=== PATIENT | male | born 1955 | race Caucasian/White ===

== ENCOUNTER 2023-09-12 17:50 | Inpatient (IN) | payer OTHER ==
[2023-09-12] MEDS ORDERED: SODIUM CHLORIDE 1,000 ML IV STA (18:58)
[2023-09-12 20:58] LABS: BASO % 0.3 % (0-2.0); EOS % 0.1 % (0-4.5); HEMATOCRIT 33.3 % (35.4-49); HEMOGLOBIN 10.7 GM/dL (11.7-16.9); LYMPH % 15.6 % (8-40); MCHC 32.1 g/dl (32.0-35.9); MEAN CELL VOLUME 78.1 fl (80-96); MEAN PLT VOLUME 8.4 fl (7.5-11.1); MONO % 9.2 % (3.8-10.2); NEUT % 74.8 % (42.8-82.8); PLATELET COUNT 152 10^3/uL (134-434); RBC 4.26 M/mm3 (4.00-5.60); RDW 14.4 % (11.9-15.9); WHITE BLOOD COUNT 5.1 K/mm3 (4.0-10.0)
[2023-09-12 21:03] LABS: INR 1.19 (0.83-1.09); PROTHROMBIN TIME (PATIENT) 13.8 SEC (9.7-13.0)
[2023-09-12 21:06] LABS: ACTIVATED PTT 32.4 SECONDS (25.2-36.5)
[2023-09-12 21:16] LABS: CHLORIDE 98 mmol/L (98-107); POTASSIUM 3.8 mmol/L (3.5-5.1); SODIUM 133 mmol/L (136-145)
[2023-09-12] MEDS ORDERED: FOLIC ACID INJECTION - 1 MG, THIAMINE HCL 100 MG, MULTIVIT INJECTION ADULT 10 ML in SOD... IVPB ONE (21:17)
[2023-09-12 21:18] LABS: CALCIUM 9.3 mg/dL (8.5-10.1)
[2023-09-12 21:19] LABS: ALBUMIN 2.6 g/dl (3.4-5.0); ANION GAP 9 mmol/L (4-13); BLOOD UREA NITROGEN 11.1 mg/dL (7-18); CO2 27 mmol/L (21-32); GLUCOSE,RANDOM 358 mg/dL (74-106); LIPASE 235 U/L (73-393); MAGNESIUM 1.5 mg/dL (1.8-2.4)
[2023-09-12] MEDS ORDERED: PANTOPRAZOLE SODIUM 40 MG VIAL IVPUSH ONE (21:20)
[2023-09-12 21:22] LABS: CREATININE 0.6 mg/dL (0.55-1.3); SGOT/AST 8 U/L (15-37); SGPT/ALT < 6 U/L (13-61)
[2023-09-12 21:23] LABS: BILIRUBIN,TOTAL 0.5 mg/dL (0.2-1); TOT PROT 6.9 g/dl (6.4-8.2)
[2023-09-12 21:25] LABS: ALK PHOS 125 U/L (45-117)
[2023-09-12 21:26] LABS: VENOUS O2 SATURATION 77.7 % (70-80); VENOUS PCO2 43.6 mmHg (38-52); VENOUS PH 7.436 (7.310-7.410)
[2023-09-12] MEDS ORDERED: PANTOPRAZOLE SODIUM 40 MG VIAL ONE (22:05)
[2023-09-12] MEDS ORDERED: MAGNESIUM SULFATE IN WATER 2 GM/50 ML IVPB IVPB ONE ×2 (22:46→23:06)
[2023-09-13] MEDS ORDERED: SODIUM CHLORIDE 1,000 ML IV STA (00:40)
[2023-09-13] MEDS ORDERED: ACETAMINOPHEN 325 MG TABLET (FP) PO PRN (00:47)
[2023-09-13] MEDS ORDERED: ONDANSETRON 4 MG/2 ML VIAL IVPUSH PRN (00:48)
[2023-09-13] MEDS ORDERED: ACETAMINOPHEN 1000 MG/100 ML BAG IVPB PRN (00:49)
[2023-09-13 01:20] LABS: EPI CELLS 16 /uL (0-25.1); HYALINE CASTS 1 /uL (0-3.1); PH,URINE 5.5 (5.0-8.0); URINE APPEARANCE CLEAR; URINE BACTERIA 24 /uL (0-1359); URINE BILIRUBIN NEGATIVE (NEGATIVE); URINE COLOR YELLOW; URINE GLUCOSE (UA) 3+ (NEGATIVE); URINE KETONE 2+ (NEGATIVE); URINE LEUK ESTERASE NEGATIVE (NEGATIVE); URINE NITRITE NEGATIVE (NEGATIVE); URINE PROTEIN 1+ (NEGATIVE); URINE RBC 8 /uL (0-23.9); URINE WBC 10 /uL (0-25.8)
[2023-09-13] MEDS ORDERED: traMADol HCL 50 MG TABLET PO SCH (02:00)
[2023-09-13] MEDS: SODIUM CHLORIDE 1,000 ML IV SCH (02:23)
[2023-09-13] MEDS ORDERED: traMADol HCL 50 MG TABLET ONE (02:26)
[2023-09-13] MEDS ORDERED: MIRTAZAPINE 15 MG TABLET (FP) ONE (02:26)
[2023-09-13] MEDS: MIRTAZAPINE 15 MG TABLET (FP) PO SCH ×2 (02:30→22:14)
[2023-09-13] MEDS ORDERED: traMADol HCL 50 MG TABLET PO PRN (03:00)
[2023-09-13 05:10] VITALS: BMI 18.3
[2023-09-13] MEDS ORDERED: INSULIN (NOVOLOG) ASPART 100 UNITS/ML 10ML VIAL ONE (06:00)
[2023-09-13] MEDS: INSULIN ASPART SLIDING SCALE (NOVOLOG) 1 VIAL SQ SCH ×5 (06:04→22:22)
[2023-09-13] MEDS: INSULIN (LEVEMIR) 100 UNITS/ML UNITS SQ SCH (06:23)
[2023-09-13] MEDS ORDERED: ACETAMINOPHEN 1000 MG/100 ML BAG IVPB ONE (11:20)
[2023-09-13] MEDS: AMINO ACIDS 4.25%/D5W 1,000 ML IV SCH (11:35)
[2023-09-13] MEDS: ENOXAPARIN NA (PORCINE) 40 MG/0.4 ML DISP.SYRIN SQ SCH (11:35)
[2023-09-13] MEDS ORDERED: LORazepam 0.5 MG TABLET PO PRN (22:00)
[2023-09-13] MEDS ORDERED: INSULIN (LEVEMIR) 100 UNITS/ML UNITS SQ SCH (22:00)
[2023-09-14] MEDS: SODIUM CHLORIDE 1,000 ML IV SCH (04:12)
[2023-09-14] MEDS: INSULIN ASPART SLIDING SCALE (NOVOLOG) 1 VIAL SQ SCH ×4 (06:20→22:20)
[2023-09-14] MEDS: ENOXAPARIN NA (PORCINE) 40 MG/0.4 ML DISP.SYRIN SQ SCH (11:29)
[2023-09-14] MEDS: AMINO ACIDS 4.25%/D5W 1,000 ML IV SCH ×2 (11:30→18:45)
[2023-09-14] MEDS: INSULIN (LEVEMIR) 100 UNITS/ML UNITS SQ SCH (11:45)
[2023-09-14] MEDS: HALOPERIDOL LACTATE 5 MG/ML IM SCH (22:15)
[2023-09-15] MEDS: AMINO ACIDS 4.25%/D5W 1,000 ML IV SCH ×3 (03:25→19:37)
[2023-09-15] MEDS: INSULIN ASPART SLIDING SCALE (NOVOLOG) 1 VIAL SQ SCH ×4 (06:53→21:43)
[2023-09-15] MEDS: SODIUM CHLORIDE 1,000 ML IV SCH (06:53)
[2023-09-15] MEDS ORDERED: INSULIN (NOVOLOG) ASPART 100 UNITS/ML 10ML VIAL ONE ×3 (06:58→18:04)
[2023-09-15] MEDS: ENOXAPARIN NA (PORCINE) 40 MG/0.4 ML DISP.SYRIN SQ SCH (10:17)
[2023-09-15] MEDS: HALOPERIDOL LACTATE 5 MG/ML IM SCH (21:32)
[2023-09-16] MEDS: AMINO ACIDS 4.25%/D5W 1,000 ML IV SCH ×2 (05:42→17:44)
[2023-09-16] MEDS: INSULIN ASPART SLIDING SCALE (NOVOLOG) 1 VIAL SQ SCH ×4 (06:40→22:34)
[2023-09-16] MEDS ORDERED: MIRTAZAPINE 15 MG TABLET (FP) PO SCH (10:00)
[2023-09-16] MEDS: ENOXAPARIN NA (PORCINE) 40 MG/0.4 ML DISP.SYRIN SQ SCH (10:37)
[2023-09-16] MEDS ORDERED: PORTA CATH FLUSH 10 ML IVPUSH PRN (14:39)
[2023-09-16] MEDS ORDERED: INSULIN (NOVOLOG) ASPART 100 UNITS/ML 10ML VIAL ONE ×2 (17:38→21:45)
[2023-09-16] MEDS ORDERED: FENTANYL PATCH WASTE TD PRN (17:42)
[2023-09-16] MEDS: fentaNYL 12mcg/hr PATCH.TD72 TD SCH (18:21)
[2023-09-16] MEDS: LIDOCAINE 4% PATCH TP SCH (18:22)
[2023-09-16] MEDS: HALOPERIDOL LACTATE 5 MG/ML IM SCH (22:32)
[2023-09-16] MEDS: MIRTAZAPINE 15 MG TABLET (FP) PO SCH (22:35)
[2023-09-16] MEDS: LIDOCAINE PATCH REMOVAL MC SCH (22:36)
[2023-09-17] MEDS: AMINO ACIDS 4.25%/D5W 1,000 ML IV SCH ×2 (05:47→17:37)
[2023-09-17] MEDS: INSULIN ASPART SLIDING SCALE (NOVOLOG) 1 VIAL SQ SCH ×4 (07:38→21:46)
[2023-09-17] MEDS: LIDOCAINE 4% PATCH TP SCH (10:28)
[2023-09-17] MEDS: ENOXAPARIN NA (PORCINE) 40 MG/0.4 ML DISP.SYRIN SQ SCH (10:28)
[2023-09-17] MEDS ORDERED: INSULIN (NOVOLOG) ASPART 100 UNITS/ML 10ML VIAL ONE (21:39)
[2023-09-17] MEDS: HALOPERIDOL LACTATE 5 MG/ML IM SCH (21:47)
[2023-09-17] MEDS: MIRTAZAPINE 15 MG TABLET (FP) PO SCH (21:52)
[2023-09-17] MEDS: LIDOCAINE PATCH REMOVAL MC SCH ×2 (21:52→22:44)
[2023-09-18] MEDS: AMINO ACIDS 4.25%/D5W 1,000 ML IV SCH ×2 (05:47→18:19)
[2023-09-18] MEDS: INSULIN ASPART SLIDING SCALE (NOVOLOG) 1 VIAL SQ SCH ×4 (06:48→21:54)
[2023-09-18] MEDS: ENOXAPARIN NA (PORCINE) 40 MG/0.4 ML DISP.SYRIN SQ SCH (10:25)
[2023-09-18] MEDS: LIDOCAINE 4% PATCH TP SCH (10:25)
[2023-09-18] MEDS ORDERED: INSULIN (NOVOLOG) ASPART 100 UNITS/ML 10ML VIAL ONE (12:12)
[2023-09-18] MEDS: HALOPERIDOL LACTATE 5 MG/ML IM SCH (21:47)
[2023-09-18] MEDS: MIRTAZAPINE 15 MG TABLET (FP) PO SCH (21:49)
[2023-09-18] MEDS: INSULIN (LEVEMIR) 100 UNITS/ML UNITS SQ SCH (21:55)
[2023-09-18] MEDS: LIDOCAINE PATCH REMOVAL MC SCH (22:01)
[2023-09-19] MEDS: INSULIN (LEVEMIR) 100 UNITS/ML UNITS SQ SCH ×2 (06:17→21:34)
[2023-09-19] MEDS: AMINO ACIDS 4.25%/D5W 1,000 ML IV SCH ×3 (06:17→20:19)
[2023-09-19] MEDS: INSULIN ASPART SLIDING SCALE (NOVOLOG) 1 VIAL SQ SCH ×4 (06:21→21:33)
[2023-09-19] MEDS: LIDOCAINE 4% PATCH TP SCH (10:17)
[2023-09-19] MEDS: ENOXAPARIN NA (PORCINE) 40 MG/0.4 ML DISP.SYRIN SQ SCH (10:17)
[2023-09-19] MEDS: fentaNYL 12mcg/hr PATCH.TD72 TD SCH (17:04)
[2023-09-19] MEDS ORDERED: INSULIN (NOVOLOG) ASPART 100 UNITS/ML 10ML VIAL ONE (17:16)
[2023-09-19] MEDS: HALOPERIDOL LACTATE 5 MG/ML IM SCH (21:35)
[2023-09-19] MEDS: MIRTAZAPINE 15 MG TABLET (FP) PO SCH (21:35)
[2023-09-19] MEDS: LIDOCAINE PATCH REMOVAL MC SCH (21:59)
[2023-09-20] MEDS: INSULIN (LEVEMIR) 100 UNITS/ML UNITS SQ SCH (06:13)
[2023-09-20] MEDS: INSULIN ASPART SLIDING SCALE (NOVOLOG) 1 VIAL SQ SCH ×3 (06:14→16:48)
[2023-09-20] MEDS: AMINO ACIDS 4.25%/D5W 1,000 ML IV SCH ×4 (06:27→22:53)
[2023-09-20] MEDS ORDERED: ACETAMINOPHEN 1000 MG/100 ML BAG IVPB PRN (09:39)
[2023-09-20 10:39] LABS: BASO % 0.4 % (0-2.0); EOS % 0.4 % (0-4.5); HEMATOCRIT 32.1 % (35.4-49); HEMOGLOBIN 10.3 GM/dL (11.7-16.9); LYMPH % 16.2 % (8-40); MEAN CELL VOLUME 78.1 fl (80-96); MONO % 8.7 % (3.8-10.2); NEUT % 74.3 % (42.8-82.8); PLATELET COUNT 163 10^3/uL (134-434); RBC 4.11 M/mm3 (4.00-5.60); RDW 14.6 % (11.9-15.9); WHITE BLOOD COUNT 5.5 K/mm3 (4.0-10.0)
[2023-09-20] MEDS: LIDOCAINE 4% PATCH TP SCH ×2 (11:04→11:09)
[2023-09-20 12:13] LABS: CHLORIDE 102 mmol/L (98-107); SODIUM 134 mmol/L (136-145)
[2023-09-20 12:16] LABS: CO2 26 mmol/L (21-32)
[2023-09-20 12:17] LABS: CALCIUM 8.6 mg/dL (8.5-10.1); GLUCOSE,RANDOM 218 mg/dL (74-106); MAGNESIUM 1.6 mg/dL (1.8-2.4)
[2023-09-20 12:19] LABS: ALBUMIN 2.5 g/dl (3.4-5.0); BLOOD UREA NITROGEN 19.1 mg/dL (7-18); CREATININE 0.5 mg/dL (0.55-1.3); SGOT/AST 22 U/L (15-37); SGPT/ALT 16 U/L (13-61)
[2023-09-20 12:21] LABS: TOT PROT 6.6 g/dl (6.4-8.2)
[2023-09-20 12:22] LABS: ALK PHOS 109 U/L (45-117); ANION GAP 6 mmol/L (4-13); BILIRUBIN,TOTAL 0.4 mg/dL (0.2-1); POTASSIUM 2.9 mmol/L (3.5-5.1)
[2023-09-20] MEDS ORDERED: POTASSIUM CHLORIDE ORAL LIQUID 20 MEQ/15 ML PO ONE (12:38)
[2023-09-20] MEDS ORDERED: MAGNESIUM SULF 50% (8.12 MEQ/2 ML-1 GM VIAL) IVPB ONE (12:39)
[2023-09-20] MEDS: KCL 10 MEQ IVPB 10 MEQ/100 ML INFUS.BAG IVPB SCH ×3 (13:31→17:14)
[2023-09-20] MEDS: ENOXAPARIN NA (PORCINE) 40 MG/0.4 ML DISP.SYRIN SQ SCH ×2 (16:48→17:18)
[2023-09-21] MEDS: LIDOCAINE PATCH REMOVAL MC SCH ×2 (06:07→22:19)
[2023-09-21] MEDS: INSULIN ASPART SLIDING SCALE (NOVOLOG) 1 VIAL SQ SCH ×5 (06:07→22:20)
[2023-09-21] MEDS: INSULIN (LEVEMIR) 100 UNITS/ML UNITS SQ SCH ×3 (06:07→22:19)
[2023-09-21] MEDS: HALOPERIDOL LACTATE 5 MG/ML IM SCH ×2 (06:07→21:00)
[2023-09-21] MEDS: MIRTAZAPINE 15 MG TABLET (FP) PO SCH ×2 (06:08→21:00)
[2023-09-21] MEDS: AMINO ACIDS 4.25%/D5W 1,000 ML IV SCH ×3 (07:04→21:00)
[2023-09-21] MEDS ORDERED: INSULIN (NOVOLOG) ASPART 100 UNITS/ML 10ML VIAL ONE ×2 (08:35→20:35)
[2023-09-21] MEDS: ENOXAPARIN NA (PORCINE) 40 MG/0.4 ML DISP.SYRIN SQ SCH (10:08)
[2023-09-21] MEDS: LIDOCAINE 4% PATCH TP SCH (10:08)
[2023-09-22 05:37] VITALS: TEMP 98.4
[2023-09-22] MEDS ORDERED: INSULIN (NOVOLOG) ASPART 100 UNITS/ML 10ML VIAL ONE (05:45)
[2023-09-22] MEDS: AMINO ACIDS 4.25%/D5W 1,000 ML IV SCH (05:57)
[2023-09-22] MEDS: INSULIN ASPART SLIDING SCALE (NOVOLOG) 1 VIAL SQ SCH ×2 (06:08→11:38)
[2023-09-22] MEDS: INSULIN (LEVEMIR) 100 UNITS/ML UNITS SQ SCH (06:08)
[2023-09-22] MEDS: ENOXAPARIN NA (PORCINE) 40 MG/0.4 ML DISP.SYRIN SQ SCH (10:29)
[2023-09-22] MEDS: LIDOCAINE 4% PATCH TP SCH (10:29)
[2023-09-22] MEDS ORDERED: ACETAMINOPHEN 650 MG/20.3 ML ORAL SOLUTION (CUPS) PO PRN (10:36)
[2023-09-22 12:20] VITALS: RESP 20
[2023-09-22 13:44] VITALS: BP 96/54; PULSE 88
== END 2023-09-22 15:58 | disposition home or self-care (01) | DRG 374 ==
LOC: JER 17:50 → JERBED 21:32 → OBSVTOIN 09-13 02:43 → JERBED 09-13 04:29 → J8W 09-13 04:52
PROVIDERS: ADMIT Internal Medicine; ATTEND Nurse Practitioner Family
DX: C16.9 Malignant neoplasm of stomach, unspecified (principal); E43 Unspecified severe protein-calorie malnutrition; U07.1 COVID-19; C15.9 Malignant neoplasm of esophagus, unspecified; Z68.1 Body mass index [BMI] 19.9 or less, adult; K21.9 Gastro-esophageal reflux disease without esophagitis; E78.5 Hyperlipidemia, unspecified; R62.7 Adult failure to thrive; D50.9 Iron deficiency anemia, unspecified; E83.42 Hypomagnesemia; Z79.84 Long term (current) use of oral hypoglycemic drugs; E87.6 Hypokalemia; E11.65 Type 2 diabetes mellitus with hyperglycemia
CPT/HCPCS: 0241U-QW; 36415; 70450-TC; 71045-TC-FY; 71260-TC; 72125-TC; 74177-TC; 74230-TC-FY; 80053; 81003; 82010; 82803; 82962; 83036; 83690; 83735; 84484; 85025; 85610; 85730; 87077; 87086; 87635; 92611-GN; 93005; 93010; 99285-25; G0378; Q9967

== ENCOUNTER 2023-09-28 18:26 | Observation (INO) | payer OTHER ==
[2023-09-28 18:59] VITALS: BMI 17.7
[2023-09-28] MEDS ORDERED: SODIUM CHLORIDE 1,000 ML IV STA (19:35)
[2023-09-28 20:57] LABS: BASO % 0.5 % (0-2.0); EOS % 0.2 % (0-4.5); HEMATOCRIT 32.3 % (35.4-49); HEMOGLOBIN 10.2 GM/dL (11.7-16.9); LYMPH % 15.8 % (8-40); MCH 24.5 pg (25.7-33.7); MCHC 31.8 g/dl (32.0-35.9); MEAN CELL VOLUME 77.1 fl (80-96); MEAN PLT VOLUME 8.5 fl (7.5-11.1); MONO % 7.5 % (3.8-10.2); PLATELET COUNT 151 10^3/uL (134-434); RBC 4.18 M/mm3 (4.00-5.60); WHITE BLOOD COUNT 4.8 K/mm3 (4.0-10.0)
[2023-09-28 21:17] LABS: MAGNESIUM 1.8 mg/dL (1.8-2.4)
[2023-09-28 21:17] LABS: ALBUMIN 2.6 g/dl (3.4-5.0); BLOOD UREA NITROGEN 18.6 mg/dL (7-18); CALCIUM 9.1 mg/dL (8.5-10.1)
[2023-09-28 21:20] LABS: CREATININE 0.5 mg/dL (0.55-1.3)
[2023-09-28 21:21] LABS: PHOSPHOROUS 3.3 mg/dL (2.5-4.9)
[2023-09-28 21:22] LABS: BILIRUBIN,TOTAL 0.5 mg/dL (0.2-1); TOT PROT 6.7 g/dl (6.4-8.2)
[2023-09-28] MEDS ORDERED: ONDANSETRON 4 MG/2 ML VIAL IVPUSH ONE (21:50)
[2023-09-28] MEDS ORDERED: ONDANSETRON 4 MG/2 ML VIAL ONE (23:01)
[2023-09-28] MEDS ORDERED: ONDANSETRON 4 MG/2 ML VIAL IVPUSH PRN (23:14)
[2023-09-28] MEDS ORDERED: AMINO ACIDS 4.25%/D5W 1,000 ML IV SCH (23:15)
[2023-09-29] MEDS ORDERED: INSULIN ASPART SLIDING SCALE (NOVOLOG) 1 VIAL SQ SCH (07:00)
[2023-09-29] MEDS ORDERED: ENOXAPARIN NA (PORCINE) 40 MG/0.4 ML DISP.SYRIN SQ SCH (10:00)
[2023-09-29] MEDS ORDERED: PANTOPRAZOLE SODIUM 40 MG VIAL IVPUSH SCH (10:00)
[2023-09-29 21:35] VITALS: RESP 18
[2023-09-30 15:31] VITALS: BP 101/65; PULSE 85; TEMP 97.6
== END 2023-09-30 17:51 ==
LOC: JER 18:26 → JERBED 21:53 → UNDOADMOB 21:53 → INTOOBSV 23:12 → OBSVTOIN 23:12 → JERBED 09-29 11:05
PROVIDERS: ADMIT Internal Medicine; ATTEND Nurse Practitioner Acute Care
PROC: 3E033NZ Introduction of Analgesics, Hypnotics, Sedatives into Peripheral Vein, Percutaneous Approach (ICD-10-PCS; principal; 2023-09-29)
PROC: 3E033GC Introduction of Other Therapeutic Substance into Peripheral Vein, Percutaneous Approach (ICD-10-PCS; 2023-09-29)
PROC: 3E0337Z Introduction of Electrolytic and Water Balance Substance into Peripheral Vein, Percutaneous Approach (ICD-10-PCS; 2023-09-29)
DX: C15.9 Malignant neoplasm of esophagus, unspecified (principal); C16.9 Malignant neoplasm of stomach, unspecified; Z51.5 Encounter for palliative care; R62.7 Adult failure to thrive; R53.1 Weakness; R63.30 Feeding difficulties, unspecified; R29.6 Repeated falls; E11.9 Type 2 diabetes mellitus without complications; E43 Unspecified severe protein-calorie malnutrition; Z86.16 Personal history of COVID-19
CPT/HCPCS: 0241U-QW; 36415; 71045-TC-FY; 72170-TC-FY; 80053; 82550; 82962; 83735; 84100; 84484; 85025; 96361; 96374; 96375; 99285-25; G0378